=== PATIENT | male | born 1990 | race Caucasian/White ===

== ENCOUNTER 2018-10-26 09:42 | Inpatient (IN) | payer OTHER ==
[2018-10-26 12:32] VITALS: BMI 24.4
--- NOTE | 2018-10-26 13:12 | HP ---
CIWA Score Nausea/Vomitin Muscle Tremors: 2 Anxiety: 2 Agitation: 2 Paroxysmal Sweats: 1-Minimal Palms Moist Orientation: 0-Oriented Tacttile Disturbances: 1-Very Mild Itch/Numbness Auditory Disturbances: 1-Very Mild Visual Disturbances: 0-None Headache: 2-Mild CIWA-Ar Total Score: 13 - Admission Criteria [facility]AS[facility] Guidelines: Admission for Medically Managed Detox: Requires at least one of the followin. CIWA greater than 12 2. Seizures within the past 24 hours 3. Delirium tremens within the past 24 hours 4. Hallucinations within the past 24 hours 5. Acute intervention needed for co occurring medical disorder 6. Acute intervention needed for co occurring psychiatric disorder 7. Severe withdrawal that cannot be handled at a lower level of care (continued vomiting, continued diarrhea, abnormal vital signs) requiring intravenous medication and/or fluids 8. Admission ROS [facility] - HPI Chief Complaint: i need help to stop drinking alcohol,marijuana abused Allergies/Adverse Reactions: Allergies Allergy/AdvReac Type Severity Reaction Status Date / Time No Known Allergies Allergy Verified 10/26/18 12:14 History of Present Illness: this 28 years old male with alcohol dependence with marijuana abused,seeking detox,withdrawal symptom, never been in detox before nicotine dependence 1 pack/day, longest period of sobriety 3 months plan for rehab after detox Exam Limitations: No Limitations - Ebola screening Have you traveled outside of the country in the last 21 days: No (N) Have you had contact with anyone from an Ebola affected area: No Do you have a fever: No - Review of Systems Constitutional: Loss of Appetite, Malaise, Night Sweats, Changes in sleep, Weakness EENT: reports: Nose Congestion Respiratory: reports: No Symptoms reported Cardiac: reports: No Symptoms Reported GI: reports: Nausea, Poor Appetite, Abdominal cramping : reports: No Symptoms Reported Musculoskeletal: reports: Back Pain, Muscle Pain Integumentary: reports: Dryness Neuro: reports: Tremors Endocrine: reports: No Symptoms Reported Hematology: reports: No Symptoms Reported Psychiatric: reports: No Sypmtoms Reported, Judgement Intact, Mood/Affect Appropiate, Orientated x3 Other Systems: Reviewed and Negative Patient History - Patient Medical History Hx Anemia: No Hx Asthma: No Hx Chronic Obstructive Pulmonary Disease (COPD): No Hx Cancer: No Hx Cardiac Disorders: No Hx Congestive Heart Failure: No Hx Hypertension: No Hx Hypercholesterolemia: No Hx Pacemaker: No HX Cerebrovascular Accident: No Hx Seizures: No Hx Dementia: No Hx Diabetes: No Hx Gastrointestinal Disorders: No Hx Liver Disease: No Hx Genitourinary Disorders: No Hx Sexually Transmitted Disorders: No Hx Renal Disease (ESRD): No Hx Thyroid Disease: No Hx Human Immunodeficiency Virus (HIV): No (last 2018 negative) Hx Hepatitis C: No Hx Depression: No Hx Suicide Attempt: No Hx Bipolar Disorder: No Hx Schizophrenia: No Other Medical History: no suicidal,no homicidal,fx of right 5th finger in 2016 - Patient Surgical History Past Surgical History: No - PPD History Previous Implant?: Yes Documented Results: Negative w/o proof Implanted On Prior [facility] Admission?: No PPD to be Administered?: Yes - Smoking Cessation Smoking history: Current every day smoker Have you smoked in the past 12 months: Yes Aproximately how many cigarettes per day: 20 Cigars Per Day: 0 Hx Chewing Tobacco Use: No Initiated information on smoking cessation: Yes 'Breaking Loose' booklet given: 10/26/18 - Substance & Tx. History Hx Alcohol Use: Yes Hx Substance Use: No Substance Use Type: Alcohol Hx Substance Use Treatment: No - Substances abused Alcohol Substance route: Oral Frequency: Daily Amount used: 1 pint of hard liquor,vodka Age of first use: 13 Date of last use: 10/26/18 Marijuana/Hashish Substance route: Smoking Frequency: Daily Amount used: 30$ Age of first use: 13 Date of last use: 10/21/18 Family Disease History - Family Disease History Family Disease History: Other: Grandparent (alcohol,), Father (alcohol, sober) Admission Physical Exam S - Vital Signs Vital Signs: Vital Signs - 24 hr 10/26/18 12:05 Temperature 99.4 F Pulse Rate 70 Respiratory 16 Rate Blood Pressure 140/85 - Physical General Appearance: Yes: Moderate Distress, Tremorous, Irritable, Sweating, Anxious HEENTM: Yes: Normal ENT Inspection, LIZ, Pharynx Normal Respiratory: Yes: Lungs Clear, Normal Breath Sounds, No Respiratory Distress Neck: Yes: Within Normal Limits, Supple, Trachea in good position Breast: Yes: Within Normal Limits Cardiology: Yes: Within Normal Limits, Regular Rhythm, Regular Rate, S1, S2 Abdominal: Yes: Within Normal Limits, Normal Bowel Sounds, Non Tender, Flat, Soft Genitourinary: Yes: Within Normal Limits Back: Yes: Muscle Spasm Musculoskeletal: Yes: Back pain, Muscle Pain Extremities: Yes: Within Normal Limits, Normal Range of Motion, Tremors, Other ( deformity right 5th finger fracture) Neurological: Yes: Within Normal Limits, loss control representative II-XII NML intact, Fully Oriented, Alert, Motor Strength 5/5 Integumentary: Yes: Dry Lymphatic: Yes: Within Normal Limits - Diagnostic (1) Alcohol dependence with uncomplicated withdrawal Current Visit: Yes Status: Acute (2) Cannabis dependence Current Visit: Yes Status: Acute (3) Nicotine dependence Current Visit: Yes Status: Acute Cleared for Admission S - Detox or Rehab [facility] Level of Care: Medically Managed Detox Regimen/Protocol: Librium Breathalyzer - Breathalyzer Breathalyzer: 0.012 Urine Drug Screen - Test Device Lot number: [id number] Expiration date: 07/14/20 - Control Is test valid?: Yes - Results Drug screen NEGATIVE: No Urine drug screen results: THC-Marijuana Inpatient Rehab Admission - Rehab Decision to Admit Inpatient rehab admission?: No
[2018-10-26] MEDS ORDERED: MAG HYDROX/AL HYDROX/SIMETH 30 ML UNIT-DOSE CUP PO PRN (13:20)
[2018-10-26] MEDS ORDERED: ACETAMINOPHEN 325 MG TABLET (FP) PO PRN ×2 (13:20)
[2018-10-26] MEDS ORDERED: BISMUTH SUBSALICYLATE 262 MG/15 ML BTL PO PRN (13:20)
[2018-10-26] MEDS ORDERED: MAGNESIUM HYDROX 2400MG/30ML ORAL SUSPENSION 30 ML CUP PO PRN (13:20)
[2018-10-26] MEDS ORDERED: MENTHOL/PHENOL 1 EACH UD MM PRN (13:20)
[2018-10-26] MEDS ORDERED: chlordiazePOXIDE HCL 25 MG CAPSULE PO PRN (13:20)
[2018-10-26] MEDS ORDERED: MAGNESIUM CITRATE 300 ML BOTTLE PO PRN (13:20)
[2018-10-26 16:44] LABS: HEMATOCRIT 43.3 % (35.4-49); HEMOGLOBIN 14.8 GM/dL (11.7-16.9); MCH 30.5 pg (25.7-33.7); MCHC 34.2 g/dl (32.0-35.9); MEAN CELL VOLUME 89.4 fl (80-96); MEAN PLT VOLUME 7.8 fl (7.5-11.1); PLATELET COUNT 234 K/MM3 (134-434); RBC 4.84 M/mm3 (4.00-5.60); RDW 13.7 % (11.9-15.9); WHITE BLOOD COUNT 8.5 K/mm3 (4.0-10.0)
[2018-10-26] MEDS: chlordiazePOXIDE HCL 25 MG CAPSULE PO SCH ×2 (16:58→22:20)
[2018-10-26 17:06] LABS: ALBUMIN 4.1 g/dl (3.4-5.0); BILIRUBIN,TOTAL 0.4 mg/dL (0.2-1); BLOOD UREA NITROGEN 7.4 mg/dL (7-18); CALCIUM 8.7 mg/dL (8.5-10.1); CREATININE 0.8 mg/dL (0.55-1.3); POTASSIUM 3.9 mmol/L (3.5-5.1); TOT PROT 6.9 g/dl (6.4-8.2)
[2018-10-26 18:01] LABS: PH,URINE 5.5 (5.0-8.0); URINE APPEARANCE CLEAR; URINE BILIRUBIN NEGATIVE (NEGATIVE); URINE COLOR YELLOW; URINE GLUCOSE (UA) NEGATIVE (NEGATIVE); URINE KETONE NEGATIVE (NEGATIVE); URINE LEUK ESTERASE NEGATIVE (NEGATIVE); URINE NITRITE NEGATIVE (NEGATIVE); URINE PROTEIN NEGATIVE (NEGATIVE); URINE UROBILINOGEN 0.2 mg/dL (0.2-1.0)
[2018-10-26] MEDS: THIAMINE HCL 100 MG TABLET (FP) PO SCH (22:20)
[2018-10-26] MEDS: MELATONIN 5 MG TABLETS PO PRN (22:43)
[2018-10-27] MEDS: chlordiazePOXIDE HCL 25 MG CAPSULE PO SCH ×4 (06:31→22:24)
[2018-10-27] MEDS: PRENATAL VITAMINS W/ FOLIC ACID TABLET (FP) PO SCH (10:37)
--- NOTE | 2018-10-27 11:48 | EKG ---
Test Reason : Blood Pressure : / mmHG Vent. Rate : 066 BPM Atrial Rate : 066 BPM P-R Int : 136 ms QRS Dur : 096 ms QT Int : 410 ms P-R-T Axes : 070 057 045 degrees QTc Int : 429 ms NORMAL SINUS RHYTHM NORMAL ECG NO PREVIOUS ECGS AVAILABLE Confirmed by NILESH MONTENEGRO, UNA ([id number]) on 10/27/2018 11:48:23 AM Referred By: Confirmed By:UNA GALLOWAY MD
[2018-10-27] MEDS: METHOCARBAMOL 500 MG TABLET PO PRN (15:10)
--- NOTE | 2018-10-27 15:43 | PN ---
[facility] CIWA - CIWA Score Nausea/Vomitin-No Nausea/No Vomiting Muscle Tremors: None Anxiety: 3 Agitation: 1-Slight > Activity Paroxysmal Sweats: 3 Orientation: 0-Oriented Tacttile Disturbances: 1-Very Mild Itch/Numbness Auditory Disturbances: 2-Mild Harshness/Frighten Visual Disturbances: 1-Very Mild Sensitivity Headache: 0-None Present CIWA-Ar Total Score: 11 S Progress Note (SOAP) Subjective: Tremors, Anxious, Sweating, Fatigue. Objective: PATIENT A & O X 3. IN NO ACUTE DISTRESS. 10/27/18 15:44 Vital Signs Temperature 97.0 F L 10/27/18 13:21 Pulse Rate 76 10/27/18 13:21 Respiratory Rate 18 10/27/18 13:21 Blood Pressure 122/86 10/27/18 13:21 O2 Sat by Pulse Oximetry (%) Laboratory Tests 10/26/18 10/26/18 10/26/18 13:15 13:15 13:15 WBC 8.5 RBC 4.84 Hgb 14.8 Hct 43.3 MCV 89.4 MCH 30.5 MCHC 34.2 RDW 13.7 Plt Count 234 MPV 7.8 Sodium 139 Potassium 3.9 Chloride 107 Carbon Dioxide 26 Anion Gap 7 L BUN 7.4 Creatinine 0.8 Est GFR (CKD-EPI)AfAm 140.90 Est GFR (CKD-EPI)NonAf 121.57 Random Glucose 79 Calcium 8.7 Total Bilirubin 0.4 AST 21 ALT 30 Alkaline Phosphatase 95 Total Protein 6.9 Albumin 4.1 Urine Color Yellow Urine Appearance Clear Urine pH 5.5 Ur Specific [place] 1.003 L Urine Protein Negative Urine Glucose (UA) Negative Urine Ketones Negative Urine Blood Negative Urine Nitrite Negative Urine Bilirubin Negative Urine Urobilinogen 0.2 Ur Leukocyte Esterase Negative RPR Titer 10/26/18 13:15 WBC RBC Hgb Hct MCV MCH MCHC RDW Plt Count MPV Sodium Potassium Chloride Carbon Dioxide Anion Gap BUN Creatinine Est GFR (CKD-EPI)AfAm Est GFR (CKD-EPI)NonAf Random Glucose Calcium Total Bilirubin AST ALT Alkaline Phosphatase Total Protein Albumin Urine Color Urine Appearance Urine pH Ur Specific [place] Urine Protein Urine Glucose (UA) Urine Ketones Urine Blood Urine Nitrite Urine Bilirubin Urine Urobilinogen Ur Leukocyte Esterase RPR Titer Nonreactive LABS NOTED. Assessment: 10/27/18 15:45 WITHDRAWAL SYMPTOMS. Plan: CONTINUE DETOX.
[2018-10-27] MEDS: MELATONIN 5 MG TABLETS PO PRN (22:24)
[2018-10-27] MEDS: THIAMINE HCL 100 MG TABLET (FP) PO SCH (22:24)
[2018-10-28] MEDS: chlordiazePOXIDE HCL 25 MG CAPSULE PO SCH ×2 (07:24→10:26)
[2018-10-28] MEDS: PRENATAL VITAMINS W/ FOLIC ACID TABLET (FP) PO SCH (10:26)
[2018-10-28] MEDS: METHOCARBAMOL 500 MG TABLET PO PRN ×3 (10:28→22:32)
--- NOTE | 2018-10-28 15:24 | PN ---
S CIWA - CIWA Score Nausea/Vomitin-No Nausea/No Vomiting Muscle Tremors: 2 Anxiety: 2 Agitation: 0-Normal Activity Paroxysmal Sweats: 3 Orientation: 0-Oriented Tacttile Disturbances: 1-Very Mild Itch/Numbness Auditory Disturbances: 0-None Visual Disturbances: 2-Mild Sensitivity Headache: 0-None Present CIWA-Ar Total Score: 10 BHS Progress Note (SOAP) Subjective: Anxious, Sweating, Tremors, Fatigue. Objective: PATIENT A & O X 3, OBSERVED AMBULATING ON UNIT UNASSISTED. IN NO ACUTE DISTRESS. 10/28/18 15:24 Vital Signs Temperature 97.2 F L 10/28/18 14:08 Pulse Rate 59 L 10/28/18 14:08 Respiratory Rate 20 10/28/18 14:08 Blood Pressure 120/82 10/28/18 14:08 O2 Sat by Pulse Oximetry (%) Laboratory Tests 10/26/18 10/26/18 10/26/18 13:15 13:15 13:15 WBC 8.5 RBC 4.84 Hgb 14.8 Hct 43.3 MCV 89.4 MCH 30.5 MCHC 34.2 RDW 13.7 Plt Count 234 MPV 7.8 Sodium 139 Potassium 3.9 Chloride 107 Carbon Dioxide 26 Anion Gap 7 L BUN 7.4 Creatinine 0.8 Est GFR (CKD-EPI)AfAm 140.90 Est GFR (CKD-EPI)NonAf 121.57 Random Glucose 79 Calcium 8.7 Total Bilirubin 0.4 AST 21 ALT 30 Alkaline Phosphatase 95 Total Protein 6.9 Albumin 4.1 Urine Color Yellow Urine Appearance Clear Urine pH 5.5 Ur Specific [place] 1.003 L Urine Protein Negative Urine Glucose (UA) Negative Urine Ketones Negative Urine Blood Negative Urine Nitrite Negative Urine Bilirubin Negative Urine Urobilinogen 0.2 Ur Leukocyte Esterase Negative RPR Titer 10/26/18 13:15 WBC RBC Hgb Hct MCV MCH MCHC RDW Plt Count MPV Sodium Potassium Chloride Carbon Dioxide Anion Gap BUN Creatinine Est GFR (CKD-EPI)AfAm Est GFR (CKD-EPI)NonAf Random Glucose Calcium Total Bilirubin AST ALT Alkaline Phosphatase Total Protein Albumin Urine Color Urine Appearance Urine pH Ur Specific [place] Urine Protein Urine Glucose (UA) Urine Ketones Urine Blood Urine Nitrite Urine Bilirubin Urine Urobilinogen Ur Leukocyte Esterase RPR Titer Nonreactive LABS NOTED. Assessment: 10/28/18 15:25 WITHDRAWAL SYMPTOMS. Plan: CONTINUE DETOX.
[2018-10-28] MEDS: chlordiazePOXIDE HCL 10 MG CAPSULE PO SCH ×2 (17:18→22:32)
[2018-10-28] MEDS: THIAMINE HCL 100 MG TABLET (FP) PO SCH (22:32)
[2018-10-28] MEDS: MELATONIN 5 MG TABLETS PO PRN (22:32)
[2018-10-28] MEDS: hydrOXYzine PAMOATE 25 MG CAPSULE (FP) PO PRN (23:13)
[2018-10-29] MEDS: chlordiazePOXIDE HCL 10 MG CAPSULE PO PRN ×2 (03:37→14:13)
[2018-10-29] MEDS: chlordiazePOXIDE HCL 10 MG CAPSULE PO SCH ×3 (06:08→18:13)
[2018-10-29] MEDS: METHOCARBAMOL 500 MG TABLET PO PRN ×2 (06:10→18:17)
[2018-10-29] MEDS: PRENATAL VITAMINS W/ FOLIC ACID TABLET (FP) PO SCH (10:06)
[2018-10-29] MEDS: IBUPROFEN 400 MG TABLET (FP) PO PRN ×2 (10:07→18:17)
--- NOTE | 2018-10-29 12:40 | PN ---
S CIWA - CIWA Score Nausea/Vomitin-No Nausea/No Vomiting Muscle Tremors: 2 Anxiety: 2 Agitation: 2 Paroxysmal Sweats: 2 Orientation: 0-Oriented Tacttile Disturbances: 0-None Auditory Disturbances: 0-None Visual Disturbances: 0-None Headache: 1-Very Mild CIWA-Ar Total Score: 9 S Progress Note (SOAP) Subjective: c/o sweats, interrupted sleep, anxiety, headache, and shakes. Objective: 10/29/18 12:39 Vital Signs 10/29/18 10/29/18 06:24 09:41 Temperature 97.0 F L 97.3 F L Pulse Rate 53 L 77 Respiratory 18 18 Rate Blood Pressure 107/62 114/72 Lab Results WBC 8.5 K/mm3 (4.0-10.0) 10/26/18 13:15 RBC 4.84 M/mm3 (4.00-5.60) 10/26/18 13:15 Hgb 14.8 GM/dL (11.7-16.9) 10/26/18 13:15 Hct 43.3 % (35.4-49) 10/26/18 13:15 MCV 89.4 fl (80-96) 10/26/18 13:15 MCHC 34.2 g/dl (32.0-35.9) 10/26/18 13:15 RDW 13.7 % (11.9-15.9) 10/26/18 13:15 Plt Count 234 K/MM3 (134-434) 10/26/18 13:15 Sodium 139 mmol/L (136-145) 10/26/18 13:15 Potassium 3.9 mmol/L (3.5-5.1) 10/26/18 13:15 Chloride 107 mmol/L (98-107) 10/26/18 13:15 Carbon Dioxide 26 mmol/L (21-32) 10/26/18 13:15 Anion Gap 7 MMOL/L (8-16) L 10/26/18 13:15 BUN 7.4 mg/dL (7-18) 10/26/18 13:15 Creatinine 0.8 mg/dL (0.55-1.3) 10/26/18 13:15 Random Glucose 79 mg/dL (74-106) 10/26/18 13:15 Calcium 8.7 mg/dL (8.5-10.1) 10/26/18 13:15 Labs noted. Assessment: 10/29/18 12:39 AOX3, in no acute distress Full ROM, ambulating in the unit. Withdrawal symptoms. Plan: continue detox. increase fluids.
[2018-10-29] MEDS: hydrOXYzine PAMOATE 25 MG CAPSULE (FP) PO PRN ×2 (14:13→22:06)
[2018-10-29] MEDS: NICOTINE POLACRILEX 2 MG GUM BUC PRN ×2 (15:09→22:43)
[2018-10-29] MEDS: MELATONIN 5 MG TABLETS PO PRN (22:03)
[2018-10-29] MEDS: THIAMINE HCL 100 MG TABLET (FP) PO SCH (22:03)
[2018-10-30] MEDS: chlordiazePOXIDE HCL 10 MG CAPSULE PO SCH ×3 (06:51→18:06)
[2018-10-30] MEDS: METHOCARBAMOL 500 MG TABLET PO PRN ×3 (07:12→22:31)
[2018-10-30] MEDS: PRENATAL VITAMINS W/ FOLIC ACID TABLET (FP) PO SCH (10:11)
[2018-10-30] MEDS: hydrOXYzine PAMOATE 25 MG CAPSULE (FP) PO PRN ×2 (13:33→22:31)
[2018-10-30] MEDS: NICOTINE POLACRILEX 2 MG GUM BUC PRN ×2 (13:36→23:25)
--- NOTE | 2018-10-30 13:42 | PN ---
S CIWA - CIWA Score Nausea/Vomitin Muscle Tremors: 2 Anxiety: 1-Mildly Anxious Agitation: 1-Slight > Activity Paroxysmal Sweats: 1-Minimal Palms Moist Orientation: 0-Oriented Tacttile Disturbances: 0-None Auditory Disturbances: 0-None Visual Disturbances: 1-Very Mild Sensitivity Headache: 1-Very Mild CIWA-Ar Total Score: 9 S Progress Note (SOAP) Subjective: ANXIOUS FIEDGTY POOR SLEEP Objective: 10/30/18 13:40 Laboratory Last Values WBC 8.5 K/mm3 (4.0-10.0) 10/26/18 13:15 RBC 4.84 M/mm3 (4.00-5.60) 10/26/18 13:15 Hgb 14.8 GM/dL (11.7-16.9) 10/26/18 13:15 Hct 43.3 % (35.4-49) 10/26/18 13:15 MCV 89.4 fl (80-96) 10/26/18 13:15 MCH 30.5 pg (25.7-33.7) 10/26/18 13:15 MCHC 34.2 g/dl (32.0-35.9) 10/26/18 13:15 RDW 13.7 % (11.9-15.9) 10/26/18 13:15 Plt Count 234 K/MM3 (134-434) 10/26/18 13:15 MPV 7.8 fl (7.5-11.1) 10/26/18 13:15 Sodium 139 mmol/L (136-145) 10/26/18 13:15 Potassium 3.9 mmol/L (3.5-5.1) 10/26/18 13:15 Chloride 107 mmol/L (98-107) 10/26/18 13:15 Carbon Dioxide 26 mmol/L (21-32) 10/26/18 13:15 Anion Gap 7 MMOL/L (8-16) L 10/26/18 13:15 BUN 7.4 mg/dL (7-18) 10/26/18 13:15 Creatinine 0.8 mg/dL (0.55-1.3) 10/26/18 13:15 Est GFR (CKD-EPI)AfAm 140.90 10/26/18 13:15 Est GFR (CKD-EPI)NonAf 121.57 10/26/18 13:15 Random Glucose 79 mg/dL (74-106) 10/26/18 13:15 Calcium 8.7 mg/dL (8.5-10.1) 10/26/18 13:15 Total Bilirubin 0.4 mg/dL (0.2-1) 10/26/18 13:15 AST 21 U/L (15-37) 10/26/18 13:15 ALT 30 U/L (13-61) 10/26/18 13:15 Alkaline Phosphatase 95 U/L (45-117) 10/26/18 13:15 Total Protein 6.9 g/dl (6.4-8.2) 10/26/18 13:15 Albumin 4.1 g/dl (3.4-5.0) 10/26/18 13:15 Urine Color Yellow 10/26/18 13:15 Urine Appearance Clear 10/26/18 13:15 Urine pH 5.5 (5.0-8.0) 10/26/18 13:15 Ur Specific [place] 1.003 (1.010-1.035) L 10/26/18 13:15 Urine Protein Negative (NEGATIVE) 10/26/18 13:15 Urine Glucose (UA) Negative (NEGATIVE) 10/26/18 13:15 Urine Ketones Negative (NEGATIVE) 10/26/18 13:15 Urine Blood Negative (NEGATIVE) 10/26/18 13:15 Urine Nitrite Negative (NEGATIVE) 10/26/18 13:15 Urine Bilirubin Negative (NEGATIVE) 10/26/18 13:15 Urine Urobilinogen 0.2 mg/dL (0.2-1.0) 10/26/18 13:15 Ur Leukocyte Esterase Negative (NEGATIVE) 10/26/18 13:15 RPR Titer Nonreactive (NONREACTIVE) 10/26/18 13:15 Laboratory Tests 10/26/18 10/26/18 10/26/18 13:15 13:15 13:15 WBC 8.5 RBC 4.84 Hgb 14.8 Hct 43.3 MCV 89.4 MCH 30.5 MCHC 34.2 RDW 13.7 Plt Count 234 MPV 7.8 Sodium 139 Potassium 3.9 Chloride 107 Carbon Dioxide 26 Anion Gap 7 L BUN 7.4 Creatinine 0.8 Est GFR (CKD-EPI)AfAm 140.90 Est GFR (CKD-EPI)NonAf 121.57 Random Glucose 79 Calcium 8.7 Total Bilirubin 0.4 AST 21 ALT 30 Alkaline Phosphatase 95 Total Protein 6.9 Albumin 4.1 Urine Color Yellow Urine Appearance Clear Urine pH 5.5 Ur Specific [place] 1.003 L Urine Protein Negative Urine Glucose (UA) Negative Urine Ketones Negative Urine Blood Negative Urine Nitrite Negative Urine Bilirubin Negative Urine Urobilinogen 0.2 Ur Leukocyte Esterase Negative RPR Titer 10/26/18 13:15 WBC RBC Hgb Hct MCV MCH MCHC RDW Plt Count MPV Sodium Potassium Chloride Carbon Dioxide Anion Gap BUN Creatinine Est GFR (CKD-EPI)AfAm Est GFR (CKD-EPI)NonAf Random Glucose Calcium Total Bilirubin AST ALT Alkaline Phosphatase Total Protein Albumin Urine Color Urine Appearance Urine pH Ur Specific [place] Urine Protein Urine Glucose (UA) Urine Ketones Urine Blood Urine Nitrite Urine Bilirubin Urine Urobilinogen Ur Leukocyte Esterase RPR Titer Nonreactive ALERT AMBULATING AND ANXIOUS Assessment: 10/30/18 13:41 ETOH DEP AND WITHDRAWAL Plan: CONT DETOX PROTOCOL
[2018-10-30] MEDS: THIAMINE HCL 100 MG TABLET (FP) PO SCH (22:31)
[2018-10-30] MEDS: IBUPROFEN 400 MG TABLET (FP) PO PRN (22:32)
[2018-10-30] MEDS: MELATONIN 5 MG TABLETS PO PRN (22:33)
[2018-10-31] MEDS: METHOCARBAMOL 500 MG TABLET PO PRN (05:59)
[2018-10-31] MEDS: hydrOXYzine PAMOATE 25 MG CAPSULE (FP) PO PRN (05:59)
[2018-10-31 09:33] VITALS: BP 122/86; PULSE 54; TEMP 96.6
--- NOTE | 2018-10-31 17:24 | DS ---
[facility] Detox Discharge Summary Admission Date: 10/26/18 Discharge Date: 10/31/18 - History Present History: Alcohol Dependence, Cannabis Dependence Additional Comments: PATIENT GOING TO [facility] ([place], [place]) FOR AFTERCARE. PATIENT WAS DISCHARGED FROM DETOX UNIT IN STABLE MEDICAL CONDITION. Pertinent Past History: Nicotine Dependence. - Physical Exam Results Vital Signs: Vital Signs Temperature 96.6 F L 10/31/18 09:00 Pulse Rate 54 L 10/31/18 09:00 Respiratory Rate 18 10/31/18 09:00 Blood Pressure 122/86 10/31/18 09:00 O2 Sat by Pulse Oximetry (%) Pertinent Admission Physical Exam Findings: WITHDRAWAL SYMPTOMS. Laboratory Tests 10/26/18 10/26/18 10/26/18 13:15 13:15 13:15 WBC 8.5 RBC 4.84 Hgb 14.8 Hct 43.3 MCV 89.4 MCH 30.5 MCHC 34.2 RDW 13.7 Plt Count 234 MPV 7.8 Sodium 139 Potassium 3.9 Chloride 107 Carbon Dioxide 26 Anion Gap 7 L BUN 7.4 Creatinine 0.8 Est GFR (CKD-EPI)AfAm 140.90 Est GFR (CKD-EPI)NonAf 121.57 Random Glucose 79 Calcium 8.7 Total Bilirubin 0.4 AST 21 ALT 30 Alkaline Phosphatase 95 Total Protein 6.9 Albumin 4.1 Urine Color Yellow Urine Appearance Clear Urine pH 5.5 Ur Specific [place] 1.003 L Urine Protein Negative Urine Glucose (UA) Negative Urine Ketones Negative Urine Blood Negative Urine Nitrite Negative Urine Bilirubin Negative Urine Urobilinogen 0.2 Ur Leukocyte Esterase Negative RPR Titer 10/26/18 13:15 WBC RBC Hgb Hct MCV MCH MCHC RDW Plt Count MPV Sodium Potassium Chloride Carbon Dioxide Anion Gap BUN Creatinine Est GFR (CKD-EPI)AfAm Est GFR (CKD-EPI)NonAf Random Glucose Calcium Total Bilirubin AST ALT Alkaline Phosphatase Total Protein Albumin Urine Color Urine Appearance Urine pH Ur Specific [place] Urine Protein Urine Glucose (UA) Urine Ketones Urine Blood Urine Nitrite Urine Bilirubin Urine Urobilinogen Ur Leukocyte Esterase RPR Titer Nonreactive LABS NOTED. - Treatment Hospital Course: Detox Protocol Followed, Detoxed Safely, Responded well, Discharged Condition Good, Rehab Referral Accepted Patient has Accepted a Rehab Referral to: [facility] ([place], [place]). - Medication Discharge Medications: Ambulatory Orders NK [No Known Home Medication] 10/26/18 - Diagnosis (1) Alcohol dependence with uncomplicated withdrawal Status: Acute (2) Cannabis dependence Status: Acute (3) Nicotine dependence Status: Acute Qualifiers: Nicotine product type: cigarettes Substance use status: uncomplicated Qualified Code(s): F17.210 - Nicotine dependence, cigarettes, uncomplicated - AMA Did Patient Leave Against Medical Advice: No
== END 2018-10-31 09:40 | disposition home or self-care (01) | DRG 897 ==
LOC: YASAS 09:42 → Y3N 13:32
PROVIDERS: ADMIT Surgery; ATTEND Surgery
PROC: HZ2ZZZZ Detoxification Services for Substance Abuse Treatment (ICD-10-PCS; principal; 2018-10-26)
DX: F10.230 Alcohol dependence with withdrawal, uncomplicated (principal); F12.20 Cannabis dependence, uncomplicated; F17.210 Nicotine dependence, cigarettes, uncomplicated
CPT/HCPCS: 36415; 80053; 81003; 85027; 86593; 93005; 93010